=== PATIENT | male | born 1975 | race Caucasian/White ===

== ENCOUNTER 2019-06-20 19:46 | Emergency (ER) | payer OTHER ==
[~2019-06-20] VITALS: Ht 175.2 cm; Wt 81.6 kg
[2019-06-20] MEDS ORDERED: NEURONTIN100 MG PO (19:51)
[2019-06-20] MEDS ORDERED: CEPHALEXIN500 M1 PO (21:15)
== END 2019-06-20 21:30 | disposition home or self-care (01) ==
LOC: ED 19:46
DX: S61.411A Laceration without foreign body of right hand, initial encounter (principal); Z79.899 Other long term (current) drug therapy; X58.XXXA Exposure to other specified factors, initial encounter; Y93.89 Activity, other specified; Y92.89 Other specified places as the place of occurrence of the external cause; Y99.9 Unspecified external cause status

== ENCOUNTER 2025-01-22 07:30 | Emergency (ER) | payer BC ==
[~2025-01-22] VITALS: Ht 175.2 cm; Wt 90.7 kg
[~2025-01-22 07:30] MED LIST: CEPHALEXIN500 M1 PO; NEURONTIN100 MG PO
[2025-01-22] MEDS ORDERED: SODIUM CHLORIDE 0.9% 500 ML IV ONE (09:15)
[2025-01-22] MEDS ORDERED: Ondansetron Hydrochloride 4 MG/2 ML VIAL IV ONE (09:15)
[2025-01-22 09:27] LABS: BASO # 0.1 10*3/uL (0.0-0.1); BASO % 0.6 % (0.0-1.0); EOS # 0.1 10*3/uL (0.0-0.4); EOS % 1.1 % (1.0-4.0); MEAN CELL VOLUME 92.0 fl (80.0-94.0); MEAN CORPUSCULAR HGB 30.2 pg (27.0-31.0); MEAN PLATELET VOLUME 9.0 fl (9.6-12.3); MONO # 0.4 10*3/uL (0.1-1.0); MONO % 5.0 % (3.0-9.0); NEUT # 4.9 10*3/uL (2.3-7.9); NEUT % 63.1 % (47.0-73.0); NUCLEATED RED BLOOD CELL 0.0 % (0.0-0.0); NUCLEATED RED BLOOD CELL 0.0 10*3/uL (0.0-0.0); PLATELET COUNT AUTOMATED 250 10*3/uL (130-400); RED CELL DISTRI WIDTH 12.8 % (0-14.5)
[2025-01-22 10:03] LABS: BUN 12 mg/dl (9-23); SGPT/ALT 50 U/L (5-49)
[2025-01-22] MEDS ORDERED: PERCOCET 5-3251 EACH PO (10:36)
[2025-01-22] MEDS ORDERED: Ondansetron4 MG PO (10:36)
== END 2025-01-22 10:51 | disposition home or self-care (01) ==
LOC: ED 07:30
PROVIDERS: Emergency Medicine
DX: K76.0 Fatty (change of) liver, not elsewhere classified (principal); R10.11 Right upper quadrant pain

== ENCOUNTER 2025-04-15 12:12 | Emergency (ER) | payer BC ==
[~2025-04-15] VITALS: Ht 175.2 cm; Wt 89.8 kg
[~2025-04-15 12:12] MED LIST changes: +Ondansetron4 MG PO; +PERCOCET 5-3251 EACH PO
[2025-04-15] MEDS ORDERED: CLINDAMYCIN HCL 300 MG CAPSULE PO ONE (13:00)
[2025-04-15] MEDS ORDERED: Acetaminophen/Hydrocodone 5 MG/325 MG TABLET PO ONE (13:00)
[2025-04-15] MEDS ORDERED: CLINDAMYCIN HC300 MG PO (13:01)
[2025-04-15] MEDS ORDERED: TYLE3UD PO (13:01)
== END 2025-04-15 13:06 | disposition home or self-care (01) ==
LOC: ED 12:12
DX: K02.9 Dental caries, unspecified (principal)